=== PATIENT | male | born 1955 | race Caucasian/White ===

== ENCOUNTER → 2022-04-17 | Day surgery (SDC) | payer OTHER ==
[~2022-04-17] VITALS: Ht 170.2 cm; Wt 87.1 kg
== END | disposition home or self-care (01) ==
LOC: FAS 07:46
DX: Z12.11 Encounter for screening for malignant neoplasm of colon (principal); K63.5 Polyp of colon; K64.4 Residual hemorrhoidal skin tags; F17.200 Nicotine dependence, unspecified, uncomplicated
CPT/HCPCS: J2250; J7120